=== PATIENT | female | born 1990 | race Caucasian/White ===

== ENCOUNTER 2016-06-01 13:56 | Emergency (ER) | payer OTHER ==
[~2016-06-01 13:56] MED LIST: CEPH500C PO; IBUP100SUS PO; PERCOCET PO; PRENTAB74 PO; SIME40TA PO
[2016-06-01] MEDS ORDERED: ONDANSETRON 4 MG ORAL DISINTEGRATING TAB (S0181) As Ordered ONE (14:34)
--- NOTE | 2016-06-01 14:45 | EDDOCDS ---
Physician Documentation [facility] Name: Kary Pettit Age: 25 yrs Sex: Female : 1990 Arrival Date: 06/01/2016 Time: 13:56 Bed TR7 Private MD: Disposition: 06/01/16 14:33 Discharged to Home/Self Care. Impression: Nausea and vomiting, Diarrhea, unspecified. - Condition is Stable. - Discharge Instructions: Viral Gastroenteritis. - Prescriptions for ZOFRAN ODT 4 mg - dissolve 1 tablet by ORAL route 4 times per day As needed do not chew, do not swallow whole; 10 tablet. - Medication Reconciliation form. - [facility]; When: Call to arrange an appointment; Reason: Recheck today's complaints, Continuance of care, To establish care. - Problem is new. - Symptoms are unchanged. Historical: - Allergies: codeine (Rash); - Home Meds: 1. none - PMHx: none; - PSHx: ; D & C; dental surgery; - Social history: Smoking status: Patient uses tobacco products, light tobacco smoker. No barriers to communication noted, The patient speaks fluent Croatian. - Family history: Not pertinent. - : The pt / caregiver states he / she is not on anticoagulants. Home medication list is obtained from the patient. - Exposure Risk Screening:: None identified. 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 (152.40 cm); Pain 6/10; 13:58 Body Mass Index 17.58 (40.82 kg, 152.40 cm) bnb MDM: 14:33 Ondansetron ODT Oral Disintegrating Tablet 4 mg PO once ordered. cc10 Administered Medications: 14:35 Drug: Ondansetron ODT 4 mg [ondansetron 4 mg disintegrating tablet (1 tabs)] Route: PO; pml Signatures: Anamaria Tracy RN RN rs3 Pearl Gonzalez RN RN pml Coniski, Chace, PA-C PA-C cc10 MTDD
--- NOTE | 2016-06-01 14:45 | EDDOCDS ---
Nurse's Notes [facility] Name: Kary Pettit Age: 25 yrs Sex: Female : 1990 Arrival Date: 06/01/2016 Time: 13:56 Bed TR7 Private MD: Diagnosis: Nausea and vomiting;Diarrhea, unspecified Presentation: 06/01 14:00 Presenting complaint: Patient states: vomiting, diarrhea, abdominal pain since this rs3 morning. noticed lump in her abdomen last week. Adult Sepsis Screening: The patient does not have new or worsening altered mentation. Patient's respiratory rate is less than 22. Systolic blood pressure is greater than 100. Patient has a qSOFA score of 0- Negative Sepsis Screen. Suicide/Homicide risk assessment- the patient denies having any suicidal and/or homicidal ideations and does not present with any other emotional, behavioral or mental health complaints. Status: Patient is not a community service manager or dependent. Transition of care: patient was not received from another setting of care. 14:00 Acuity: TOY Level 3 rs3 14:00 Method Of Arrival: Walkin/Carried/Asstd rs3 Triage Assessment: 14:02 General: Appears in no apparent distress. Pain: Location: abdomen. HIV screening NA for rs3 this visit Offered previously. 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 none - PMHx: none; - PSHx: ; D & C; dental surgery; - Social history: Smoking status: Patient uses tobacco products, light tobacco smoker. No barriers to communication noted, The patient speaks fluent Nepali. - Family history: Not pertinent. - : The pt / caregiver states he / she is not on anticoagulants. Home medication list is obtained from the patient. - Exposure Risk Screening:: None identified. Screenin:35 Screening information is obtained from the patient. Fall risk: No risks identified. pml Assistance ADL's: requires no assistance with activities of daily living. Abuse/DV Screen: The patient / caregiver reports he/she is: not in a situation that causes fear, pain or injury. Nutritional screening: No deficits noted. Advance Directives: Currently, there is no health care proxy. home support is adequate. Assessment: 14:35 General: Appears in no apparent distress, Behavior is appropriate for age, cooperative. pml Pain: Location: abdomen. Neurological: Level of Consciousness is awake, alert, Oriented to person, place, time. Cardiovascular: Capillary refill < 3 seconds. Respiratory: Airway is patent Respiratory effort is even, unlabored. GI: Abdomen is non- distended Bowel sounds present X 4 quads. Abd is soft X 4 quads. Derm: Skin is pink, warm & dry. Vital Signs: 13:58 BP 97 / 60 RA Sitting (auto/reg); Pulse 80; Resp 16; Temp 97.2(T); Pulse Ox 99% on R/A; bnb Weight 40.82 kg; Height 5 ft. (152.40 cm); Pain 6/10; 13:58 Body Mass Index 17.58 (40.82 kg, 152.40 cm) bnb Vitals: 13:58 Log In Time: June 01, 2016 at 13:55. bnb ED Course: 13:57 Patient visited by Macarena Farmer PCA. bnb 13:57 Patient moved to Waiting bnb 14:00 Patient moved to Pre RCE bnb 14:01 Triage Initiated rs3 14:09 Patient moved to Triage 3 ar3 14:28 Chace Campa PA-C is PHCP. cc10 14:28 Hubert Benavides MD is Attending Physician. cc10 14:28 Patient visited by Chace Campa PA-C. cc10 14:28 Patient visited by Chace Campa PA-C. cc10 14:33 [facility] is Referral Physician. cc10 14:35 The patient / caregiver is instructed regarding the plan of care and ED course. Patient pml has correct armband on for positive identification. Bed in low position. Call light in reach. 14:35 No IV's were initiated during this patient's visit. No procedures done that require pml assistance. 14:36 Patient visited by Pearl Gonzalez RN. pml 14:43 Patient moved to TR7 ar3 Administered Medications: 14:35 Drug: Ondansetron ODT 4 mg [ondansetron 4 mg disintegrating tablet (1 tabs)] Route: PO; pml Order Results: There are currently no results for this order. Outcome: 14:33 Discharge ordered by Provider. cc10 14:43 Discharge Assessment: Patient awake, alert and oriented x 3. No cognitive and/or pml functional deficits noted. Patient verbalized understanding of disposition instructions. patient administered narcotics - no. The following High Risk Discharge criteria are identified: None. Discharged to home ambulatory. Condition: good Condition: stable. Discharge instructions given to patient, Instructed on discharge instructions, follow up and referral plans. medication usage, Demonstrated understanding of instructions, medications, Pt was receptive of discharge instructions/ teaching. Prescriptions given X 1. No special radiology studies were completed. Property sent home with patient. 14:43 Patient left the ED. pml Signatures: Anamaria Tracy,RN RN rs3 Leslie Black, LINE RUNNER LINE RUNNER ar3 Pearl Gonzalez RN RN pml Chace Campa, JONNYC PASumaC cc10 Macarena Farmer, LINE RUNNER LINE RUNNER bnb MTDD
--- NOTE | 2016-06-03 15:45 | EDDOCDS ---
Physician Documentation [facility] Name: Kary Pettit Age: 25 yrs Sex: Female : 1990 Arrival Date: 06/01/2016 Time: 13:56 Bed TR7 Private MD: Disposition: 06/01/16 14:33 Discharged to Home/Self Care. Impression: Nausea and vomiting, Diarrhea, unspecified. - Condition is Stable. - Discharge Instructions: Viral Gastroenteritis. - Prescriptions for ZOFRAN ODT 4 mg - dissolve 1 tablet by ORAL route 4 times per day As needed do not chew, do not swallow whole; 10 tablet. - Medication Reconciliation form. - Follow up: [facility]; When: Call to arrange an appointment; Reason: Recheck today's complaints, Continuance of care, To establish care. - Problem is new. - Symptoms are unchanged. Historical: - Allergies: codeine (Rash); - Home Meds: 1. none - PMHx: none; - PSHx: ; D & C; dental surgery; - Social history: Smoking status: Patient uses tobacco products, light tobacco smoker. No barriers to communication noted, The patient speaks fluent Danish. - Family history: Not pertinent. - : The pt / caregiver states he / she is not on anticoagulants. Home medication list is obtained from the patient. - Exposure Risk Screening:: None identified. 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 (152.40 cm); Pain 6/10; 13:58 Body Mass Index 17.58 (40.82 kg, 152.40 cm) bnb MDM: 14:33 Ondansetron ODT Oral Disintegrating Tablet 4 mg PO once ordered. cc10 06/02 14:12 T-Sheet-- Draft Copy was scanned into [employer] and attached to record. gb Administered Medications: 06/01 14:35 Drug: Ondansetron ODT 4 mg [ondansetron 4 mg disintegrating tablet (1 tabs)] Route: PO; pml Signatures: Kenzie Ortega, Reg Reg gb Anamaria Tracy,RN RN rs3 Pearl Gonzalez,RN RN pml Chace Campa, FRANTZ LANDRY cc10 The chart was reviewed and I authenticate all verbal orders and agree with the evaluation and treatment provided.Attachments: 06/02 14:12 T-Sheet-- Draft Copy gb Chart Complete MTDD
--- NOTE | 2016-06-03 15:45 | EDDOCDS ---
Nurse's Notes [facility] Name: Kary Pettit Age: 25 yrs Sex: Female : 1990 Arrival Date: 06/01/2016 Time: 13:56 Bed TR7 Private MD: Diagnosis: Nausea and vomiting;Diarrhea, unspecified Presentation: 06/01 14:00 Presenting complaint: Patient states: vomiting, diarrhea, abdominal pain since this rs3 morning. noticed lump in her abdomen last week. Adult Sepsis Screening: The patient does not have new or worsening altered mentation. Patient's respiratory rate is less than 22. Systolic blood pressure is greater than 100. Patient has a qSOFA score of 0- Negative Sepsis Screen. Suicide/Homicide risk assessment- the patient denies having any suicidal and/or homicidal ideations and does not present with any other emotional, behavioral or mental health complaints. 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 Transition of care: patient was not received from another setting of care. 14:00 Acuity: TOY Level 3 rs3 14:00 Method Of Arrival: Walkin/Carried/Asstd rs3 Triage Assessment: 14:02 General: Appears in no apparent distress. Pain: Location: abdomen. HIV screening NA for rs3 this visit Offered previously. 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 none - PMHx: none; - PSHx: ; D & C; dental surgery; - Social history: Smoking status: Patient uses tobacco products, light tobacco smoker. No barriers to communication noted, The patient speaks fluent Hebrew. - Family history: Not pertinent. - : The pt / caregiver states he / she is not on anticoagulants. Home medication list is obtained from the patient. - Exposure Risk Screening:: None identified. Screenin:35 Screening information is obtained from the patient. Fall risk: No risks identified. pml Assistance ADL's: requires no assistance with activities of daily living. Abuse/DV Screen: The patient / caregiver reports he/she is: not in a situation that causes fear, pain or injury. Nutritional screening: No deficits noted. Advance Directives: Currently, there is no health care proxy. home support is adequate. Assessment: 14:35 General: Appears in no apparent distress, Behavior is appropriate for age, cooperative. pml Pain: Location: abdomen. Neurological: Level of Consciousness is awake, alert, Oriented to person, place, time. Cardiovascular: Capillary refill < 3 seconds. Respiratory: Airway is patent Respiratory effort is even, unlabored. GI: Abdomen is non- distended Bowel sounds present X 4 quads. Abd is soft X 4 quads. Derm: Skin is pink, warm & dry. Vital Signs: 13:58 BP 97 / 60 RA Sitting (auto/reg); Pulse 80; Resp 16; Temp 97.2(T); Pulse Ox 99% on R/A; bnb Weight 40.82 kg; Height 5 ft. (152.40 cm); Pain 6/10; 13:58 Body Mass Index 17.58 (40.82 kg, 152.40 cm) bnb Vitals: 13:58 Log In Time: June 01, 2016 at 13:55. bnb ED Course: 13:57 Patient visited by Macarena Farmer PCA. bnb 13:57 Patient moved to Waiting bnb 14:00 Patient moved to Pre RCE bnb 14:01 Triage Initiated rs3 14:09 Patient moved to Triage 3 ar3 14:28 Chace Campa PA-C is PHCP. cc10 14:28 Hubert Benavides MD is Attending Physician. cc10 14:28 Patient visited by Chace Campa PA-C. cc10 14:28 Patient visited by Chace Campa PA-C. cc10 14:33 [facility] is Referral Physician. cc10 14:35 The patient / caregiver is instructed regarding the plan of care and ED course. Patient pml has correct armband on for positive identification. Bed in low position. Call light in reach. 14:35 No IV's were initiated during this patient's visit. No procedures done that require pml assistance. 14:36 Patient visited by Pearl Gonzalez RN. pml 14:43 Patient moved to TR7 ar3 06/02 14:12 T-Sheet-- Draft Copy was scanned into [employer] and attached to record. gb Administered Medications: 06/01 14:35 Drug: Ondansetron ODT 4 mg [ondansetron 4 mg disintegrating tablet (1 tabs)] Route: PO; pml Order Results: There are currently no results for this order. Outcome: 14:33 Discharge ordered by Provider. cc10 14:43 Discharge Assessment: Patient awake, alert and oriented x 3. No cognitive and/or pml functional deficits noted. Patient verbalized understanding of disposition instructions. patient administered narcotics - no. The following High Risk Discharge criteria are identified: None. Discharged to home ambulatory. Condition: good Condition: stable. Discharge instructions given to patient, Instructed on discharge instructions, follow up and referral plans. medication usage, Demonstrated understanding of instructions, medications, Pt was receptive of discharge instructions/ teaching. Prescriptions given X 1. No special radiology studies were completed. Property sent home with patient. 14:43 Patient left the ED. pml Signatures: Kenzie Ortega, Reg Reg gb Anamaria Tracy,RN RN rs3 Leslie Black, RADIATION ENGINEER RADIATION ENGINEER ar3 Pearl Gonzalez RN RN pml Chace Campa, PAMayra PASumaC cc10 Macarena Farmer, RADIATION ENGINEER RADIATION ENGINEER bnb Chart Complete MTDD
--- NOTE | 2016-06-03 15:45 | EDDOCDS ---
Physician Documentation [facility] Name: Kary Pettit Age: 25 yrs Sex: Female : 1990 Arrival Date: 06/01/2016 Time: 13:56 Bed TR7 Private MD: Disposition: 06/01/16 14:33 Discharged to Home/Self Care. Impression: Nausea and vomiting, Diarrhea, unspecified. - Condition is Stable. - Discharge Instructions: Viral Gastroenteritis. - Prescriptions for ZOFRAN ODT 4 mg - dissolve 1 tablet by ORAL route 4 times per day As needed do not chew, do not swallow whole; 10 tablet. - Medication Reconciliation form. - Follow up: [facility]; When: Call to arrange an appointment; Reason: Recheck today's complaints, Continuance of care, To establish care. - Problem is new. - Symptoms are unchanged. Historical: - Allergies: codeine (Rash); - Home Meds: 1. none - PMHx: none; - PSHx: ; D & C; dental surgery; - Social history: Smoking status: Patient uses tobacco products, light tobacco smoker. No barriers to communication noted, The patient speaks fluent Greenlandic. - Family history: Not pertinent. - : The pt / caregiver states he / she is not on anticoagulants. Home medication list is obtained from the patient. - Exposure Risk Screening:: None identified. 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 (152.40 cm); Pain 6/10; 13:58 Body Mass Index 17.58 (40.82 kg, 152.40 cm) bnb MDM: 14:33 Ondansetron ODT Oral Disintegrating Tablet 4 mg PO once ordered. cc10 06/02 14:12 T-Sheet-- Draft Copy was scanned into [email or web address] and attached to record. gb Administered Medications: 06/01 14:35 Drug: Ondansetron ODT 4 mg [ondansetron 4 mg disintegrating tablet (1 tabs)] Route: PO; pml Signatures: Kenzie Ortega, Reg Reg gb Anamaria Tracy,RN RN rs3 Pearl Gonzalez,RN RN pml Chace Campa, FRANTZ LANDRY cc10 The chart was reviewed and I authenticate all verbal orders and agree with the evaluation and treatment provided.Attachments: 06/02 14:12 T-Sheet-- Draft Copy gb Chart Complete MTDD
== END 2016-06-01 14:43 | disposition home or self-care (01) ==
LOC: M ED 13:56
DX: B08.4 Enteroviral vesicular stomatitis with exanthem (principal); R11.2 Nausea with vomiting, unspecified; R19.7 Diarrhea, unspecified; F17.200 Nicotine dependence, unspecified, uncomplicated; Z88.5 Allergy status to narcotic agent

== ENCOUNTER → 2017-06-02 | Outpatient (CLI) | payer MEDICAID | LOC: M OUTALCOH 07:44 | DX: F12.20 Cannabis dependence, uncomplicated (principal); F10.20 Alcohol dependence, uncomplicated; F14.20 Cocaine dependence, uncomplicated ==

== ENCOUNTER 2017-06-15 10:59 | Outpatient (RCR) | payer MEDICAID | END 2017-06-17 | LOC: M OUTALCOH 10:59 | DX: F12.20 Cannabis dependence, uncomplicated (principal); F10.20 Alcohol dependence, uncomplicated; F14.20 Cocaine dependence, uncomplicated; F17.200 Nicotine dependence, unspecified, uncomplicated ==

== ENCOUNTER 2017-06-18 14:48 | Outpatient (RCR) | payer MEDICAID | END 2017-07-18 | LOC: M OUTALCOH 14:48 | DX: F12.20 Cannabis dependence, uncomplicated (principal); F10.20 Alcohol dependence, uncomplicated; F14.20 Cocaine dependence, uncomplicated; F17.200 Nicotine dependence, unspecified, uncomplicated ==

== ENCOUNTER → 2017-08-17 | Outpatient (RCR) | payer MEDICAID | LOC: M OUTALCOH 12:48 | DX: F12.20 Cannabis dependence, uncomplicated (principal); F10.20 Alcohol dependence, uncomplicated; F14.20 Cocaine dependence, uncomplicated; F17.200 Nicotine dependence, unspecified, uncomplicated ==

== ENCOUNTER → 2017-09-07 | Outpatient (CLI) | payer MEDICAID ==
[2017-09-07 09:20] LABS: BASO % 0.5 % (0.0-1.0); EOS # 0.1 10^3/uL (0.0-0.50); EOS % 1.2 % (0.0-3.0); HEMATOCRIT 39.7 % (36.0-47.0); HEMOGLOBIN 13.5 g/dl (12.0-15.5); IMMATURE GRANULOCYTE % 0.4 % (0-3.0); LYMPH # 1.2 10^3/uL (1.5-6.5); LYMPH % 21.3 % (24.0-44.0); MEAN CORPUSCULAR HEMOGLOBIN 32.5 pg (27.0-33.0); MEAN CORPUSCULAR VOLUME 95.4 fl (80.0-96.0); MONO # 0.4 10^3/uL (0.0-0.8); MONO % 6.7 % (0.0-5.0); NEUTROPHILS % 69.9 % (36.0-66.0); PLATELET COUNT, AUTOMATED 146 10^3/uL (150-450); RED BLOOD COUNT 4.16 10^6/uL (4.00-5.40); WHITE BLOOD COUNT 5.7 10^3/uL (4.0-10.0)
[2017-09-07 09:22] LABS: APPEARANCE, URINE CLOUDY (CLEAR); BACTERIA, URINE AUTO 1+ (NEGATIVE); BILIRUBIN, URINE AUTO NEGATIVE (NEGATIVE); BLOOD, URINE BLOOD NEGATIVE (NEGATIVE); COLOR, URINE YELLOW (YELLOW); GLUCOSE, URINE (UA) AUTO NEGATIVE (NEGATIVE); KETONE, URINE AUTO NEGATIVE (NEGATIVE); LEUKOCYTE ESTERASE, URINE AUTO 1+ (NEGATIVE); NITRITE, URINE AUTO NEGATIVE (NEGATIVE); PROTEIN, URINE AUTO NEGATIVE (NEGATIVE); RBC, URINE AUTO 3 /HPF (0-3); SPECIFIC GRAVITY URINE AUTO 1.011 (1.002-1.035); SQUAMOUS EPITHELIAL CELL UR AU 32 /HPF (0-6); UROBILINOGEN, URINE AUTO 0.2 mg/dL (0.0-2.0); WBC, URINE AUTO 1 /HPF (0-3)
[2017-09-07 09:41] LABS: ALBUMIN 4.7 GM/DL (3.2-5.2); ALBUMIN/GLOBULIN RATIO 1.74 (1.00-1.93); ALKALINE PHOSPHATASE 59 U/L (45-117); ALT/SGPT 26 U/L (12-78); ANION GAP 6 MEQ/L (8-16); AST/SGOT 16 U/L (7-37); BILIRUBIN,TOTAL 0.4 MG/DL (0.2-1.0); BLOOD UREA NITROGEN 13 MG/DL (7-18); CALCIUM LEVEL 9.7 MG/DL (8.5-10.1); CARBON DIOXIDE LEVEL 32 MEQ/L (21-32); CHLORIDE LEVEL 105 MEQ/L (98-107); CREATININE FOR GFR 0.65 MG/DL (0.55-1.30); GLOMERULAR FILTRATION RATE > 60.0 (>60); GLUCOSE, FASTING 56 MG/DL (70-100); POTASSIUM SERUM 4.1 MEQ/L (3.5-5.1); SODIUM LEVEL 143 MEQ/L (136-145); TOTAL PROTEIN 7.4 GM/DL (6.4-8.2)
[2017-09-07 09:56] LABS: HEPATITIS B SURFACE ANTIBODY POSITIVE (POSITIVE)
[2017-09-07 10:06] LABS: HEPATITIS B SURFACE ANTIGEN NEGATIVE (NEGATIVE)
[2017-09-07 10:35] LABS: HEPATITIS C VIRUS ABY INDEX < 0.0 INDEX (<0.8)
[2017-09-08 08:06] LABS: HEPATITIS A IgG TOTAL Negative (Negative)
== END ==
LOC: M LAB 08:35
DX: Z79.891 Long term (current) use of opiate analgesic (principal); F10.21 Alcohol dependence, in remission
CPT/HCPCS: 80053

== ENCOUNTER → 2017-11-13 | Outpatient (CLI) | payer OTHER ==
[2017-11-13 11:15] LABS: MAGNESIUM LEVEL 2.1 MG/DL (1.8-2.4)
[2017-11-13 11:28] LABS: FOLATE > 24.0 NG/ML; TOTAL 25(OH) VITAMIN D 26.9 NG/ML (30.0-100.0); VITAMIN B12 LEVEL 554 PG/ML
== END ==
LOC: M LAB 10:24
DX: F10.21 Alcohol dependence, in remission (principal)
CPT/HCPCS: 82746

== ENCOUNTER 2018-04-08 21:11 | Emergency (ER) | payer OTHER ==
[2018-04-08 23:50] LABS: INFLUENZA A AMPLIFICATION NEGATIVE (NEGATIVE); INFLUENZA B AMPLIFICATION NEGATIVE (NEGATIVE)
== END 2018-04-09 00:20 | disposition home or self-care (01) ==
LOC: M ED 04-09 00:20
DX: B34.9 Viral infection, unspecified (principal); Z87.891 Personal history of nicotine dependence; F32.9 Major depressive disorder, single episode, unspecified
CPT/HCPCS: 71046

== ENCOUNTER 2018-06-16 09:37 | Outpatient (RCR) | payer OTHER ==
[~2018-06-16 09:37] MED LIST changes: +BUSP15TA47; +FLUO20CA19; +NICO21DI31; +PREN27TA3; +VITA400C5
== END 2018-06-17 ==
LOC: M PT 09:37
PROVIDERS: ATTEND Physician Assistant Medical
DX: Z51.89 Encounter for other specified aftercare (principal); M54.5 Low back pain

== ENCOUNTER → 2018-07-01 | Outpatient (CLI) | payer OTHER ==
[2018-07-01 10:43] LABS: BASO % 0.4 % (0.0-1.0); EOS # 0.1 10^3/uL (0.0-0.50); EOS % 1.2 % (0.0-3.0); HEMATOCRIT 36.3 % (36.0-47.0); HEMOGLOBIN 12.5 g/dl (12.0-15.5); LYMPH # 1.3 10^3/uL (1.5-6.5); LYMPH % 24.6 % (24.0-44.0); MEAN CORPUSCULAR HGB CONC 34.4 g/dl (32.0-36.5); MEAN CORPUSCULAR VOLUME 90.1 fl (80.0-96.0); MONO # 0.4 10^3/uL (0.0-0.8); MONO % 8.7 % (0.0-5.0); NEUTROPHILS # 3.3 10^3/uL (1.8-7.7); NEUTROPHILS % 64.7 % (36.0-66.0); PLATELET COUNT, AUTOMATED 145 10^3/uL (150-450); RED BLOOD COUNT 4.03 10^6/uL (4.00-5.40); WHITE BLOOD COUNT 5.1 10^3/uL (4.0-10.0)
[2018-07-01 11:16] LABS: ALBUMIN 3.9 GM/DL (3.2-5.2); ALT/SGPT 24 U/L (12-78); BILIRUBIN,TOTAL 0.3 MG/DL (0.2-1.0); BLOOD UREA NITROGEN 12 MG/DL (7-18); CALCIUM LEVEL 9.1 MG/DL (8.5-10.1); CARBON DIOXIDE LEVEL 29 MEQ/L (21-32); CHLORIDE LEVEL 105 MEQ/L (98-107); CHOLESTEROL LEVEL 164 MG/DL (<200); CREATININE FOR GFR 0.66 MG/DL (0.55-1.30); GLOMERULAR FILTRATION RATE > 60.0 (>60); GLUCOSE, FASTING 83 MG/DL (70-100); HDL CHOLESTEROL 40 MG/DL (>40); LDL CHOLESTEROL 101 MG/DL (<100); NON-HDL-C 124 MG/DL; POTASSIUM SERUM 4.2 MEQ/L (3.5-5.1); SODIUM LEVEL 139 MEQ/L (136-145); TOTAL PROTEIN 6.8 GM/DL (6.4-8.2); TRIGLYCERIDES LEVEL 117 MG/DL (<150)
== END ==
LOC: M LAB 09:22
PROVIDERS: ATTEND Physician Assistant Medical
DX: R53.83 Other fatigue (principal); I10 Essential (primary) hypertension; E55.9 Vitamin D deficiency, unspecified

== ENCOUNTER 2018-07-14 12:46 | Outpatient (RCR) | payer OTHER | END 2018-07-18 | LOC: M PT 12:46 | PROVIDERS: ATTEND Physician Assistant Medical | DX: Z51.89 Encounter for other specified aftercare (principal); M54.5 Low back pain ==

== ENCOUNTER 2018-08-12 13:00 | Outpatient (RCR) | payer OTHER ==
[~2018-08-12 13:00] MED LIST changes: -BUSP15TA47; +BUSP15TA47 PO; +IBUP100S44 PO; -IBUP100SUS PO; +OXYC1TAB23 PO; -PERCOCET PO
[2018-08-13] MEDS ORDERED: PROZ20CA11 PO (21:29)
[2018-08-13] MEDS ORDERED: VITA200044 PO (23:39)
[2018-08-13] MEDS ORDERED: HYDR-3363 PO (23:39)
[2018-08-13] MEDS ORDERED: FLUO10CA8 PO (23:39)
[2018-08-13] MEDS ORDERED: NICO4GUM42 MT (23:39)
[2018-08-13] MEDS ORDERED: VITA-157 PO (23:39)
[2018-08-13] MEDS ORDERED: PREN27TA3 PO (23:39)
[2018-08-13] MEDS ORDERED: IBUP1TAB6 PO (23:39)
[2018-08-13] MEDS ORDERED: FLON1SPR NARES (23:39)
== END 2018-08-17 ==
LOC: M PT 13:00
PROVIDERS: ATTEND Physician Assistant Medical
DX: M54.5 Low back pain (principal)

== ENCOUNTER 2018-08-13 21:07 | Inpatient (IN) | payer OTHER ==
[~2018-08-13] VITALS: Ht 154.9 cm; Wt 64.3 kg
[2018-08-13] MEDS ORDERED: PROZ20CA11 PO (21:29)
[2018-08-13 21:50] LABS: HEMATOCRIT 36.1 % (36.0-47.0); HEMOGLOBIN 12.5 g/dl (12.0-15.5); MEAN CORPUSCULAR HEMOGLOBIN 31.8 pg (27.0-33.0); MEAN CORPUSCULAR HGB CONC 34.6 g/dl (32.0-36.5); MEAN CORPUSCULAR VOLUME 91.9 fl (80.0-96.0); PLATELET COUNT, AUTOMATED 150 10^3/uL (150-450); RED BLOOD COUNT 3.93 10^6/uL (4.00-5.40); WHITE BLOOD COUNT 5.8 10^3/uL (4.0-10.0)
[2018-08-13 22:31] LABS: ACETAMINOPHEN LEVEL < 2.0 UG/ML (10.0-30.0); ALBUMIN 3.8 GM/DL (3.2-5.2); ALT/SGPT 34 U/L (12-78); BILIRUBIN,DIRECT < 0.1 MG/DL (0.0-0.2); BILIRUBIN,TOTAL 0.1 MG/DL (0.2-1.0); BLOOD UREA NITROGEN 14 MG/DL (7-18); CALCIUM LEVEL 8.6 MG/DL (8.5-10.1); CARBON DIOXIDE LEVEL 28 MEQ/L (21-32); CHLORIDE LEVEL 108 MEQ/L (98-107); CREATININE FOR GFR 0.68 MG/DL (0.55-1.30); ETHYL ALCOHOL (ETHANOL) < 0.003 % (0.000-0.010); GLOMERULAR FILTRATION RATE > 60.0 (>60); GLUCOSE, FASTING 93 MG/DL (70-100); POTASSIUM SERUM 3.7 MEQ/L (3.5-5.1); SALICYLATE LEVEL < 1.7 MG/DL (5.0-30.0); SODIUM LEVEL 142 MEQ/L (136-145); TOTAL PROTEIN 7.1 GM/DL (6.4-8.2)
[2018-08-13 23:03] LABS: AMPHETAMINES LEVEL URINE NEGATIVE (NEGATIVE); BARBITURATES URINE NEGATIVE (NEGATIVE); BENZODIAZEPINES URINE NEGATIVE (NEGATIVE); CANNABINOIDS URINE NEGATIVE (NEGATIVE); COCAINE METABOLITE URINE NEGATIVE (NEGATIVE); METHADONE URINE NEGATIVE (NEGATIVE); OPIATES URINE NEGATIVE (NEGATIVE); PHENCYCLIDINE URINE NEGATIVE (NEGATIVE)
[2018-08-13] MEDS ORDERED: FLON1SPR NARES (23:39)
[2018-08-13] MEDS ORDERED: VITA200044 PO (23:39)
[2018-08-13] MEDS ORDERED: HYDR-3363 PO (23:39)
[2018-08-13] MEDS ORDERED: NICO4GUM42 MT (23:39)
[2018-08-13] MEDS ORDERED: VITA-157 PO (23:39)
[2018-08-13] MEDS ORDERED: FLUO10CA8 PO (23:39)
[2018-08-13] MEDS ORDERED: IBUP1TAB6 PO (23:39)
[2018-08-13] MEDS ORDERED: PREN27TA3 PO (23:39)
[2018-08-14] MEDS ORDERED: MOM 30ML SUSPENSION UDC PO PRN
[2018-08-14] MEDS ORDERED: MAALOX 30 ML SUSP *UDC PO PRN
[2018-08-14 01:35] VITALS: BP 116/57
[2018-08-14 06:29] VITALS: BP 102/51
[2018-08-14] MEDS: FLUoxetine 20 MG CAP PO SCH (17:04)
[2018-08-14 18:20] VITALS: BP 127/70
[2018-08-14] MEDS: traZODone 50 MG TAB PO PRN (20:54)
[2018-08-15 06:56] VITALS: BP 95/55
[2018-08-15] MEDS: FLUoxetine 20 MG CAP PO SCH (09:06)
[2018-08-15] MEDS ORDERED: FLUoxetine 20 MG CAP PO ONE (13:30)
[2018-08-15 18:35] VITALS: BP 101/54
[2018-08-15] MEDS: traZODone 50 MG TAB PO PRN (22:29)
[2018-08-15] MEDS: diphenhydrAMINE CREAM 30GM TOP PRN (22:30)
[2018-08-16 06:49] VITALS: BP 93/52
[2018-08-16] MEDS ORDERED: FLUoxetine 20 MG CAP PO SCH (09:00)
[2018-08-16] MEDS: diphenhydrAMINE CREAM 30GM TOP PRN (11:24)
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
[2018-08-16 18:00] VITALS: BP 115/70
--- NOTE | 2018-08-16 21:39 | HPE ---
DATE OF ADMISSION: 08/13/2018 HISTORY OF PRESENT ILLNESS: Please refer to the psychiatric history and evaluation for further details on this admission. This examination and history is intended for medical issues which may need treatment, followup or consultation on this 27-year-old female. ALLERGIES: CODEINE and VARENICLINE. PRIMARY CARE PROVIDER: JOSUE Dugan at [facility] SOCIAL HISTORY: She is single. She is currently a resident at the [facility] for drug rehabilitation. Alcohol: None in 14 months. Smoking cigarettes: None in one year. Recreational drug use: Alcohol and marijuana, none for 14 months. PAST MEDICAL HISTORY: Negative. PAST SURGICAL HISTORY: Dilation and curettage, three (C) sections, and dental surgery. HOME MEDICATIONS: - Sensipar 15 mg by mouth three times a day - fluoxetine 10 mg by mouth daily and 20 mg by mouth daily - fluticasone nasal spray two sprays as needed for allergies - hydroxyzine 25 mg by mouth at bedtime - vitamin one daily - vitamin D3 2000 units by mouth daily - ibuprofen 600 mg by mouth three times a day as needed for pain - nicotine gum 4 mg six times per day as needed for nicotine craving - vitamin E 400 units daily FAMILY HISTORY: Noncontributory. LABORATORY STUDIES: WBC 5.8, hemoglobin 12.5, hematocrit 36.1, platelets 150. Sodium 142, potassium 3.7, chloride 108, CO2 28, anion gap 6, BUN 14, creatinine 0.6. Toxicology was negative. REVIEW OF SYSTEMS: 11-systems review was done. She complained of just noting after her shower that she had a slight red non-vesicular rash on her upper inner thigh, possibly secondary to rubbing on the scrubs, irritating. No open areas. Otherwise, no complaints and was remarkable. PHYSICAL EXAMINATION: A 27-year-old cooperative female in no acute distress. Height 61 inches, body mass index (BMI) 26.4, blood pressure 127/70, pulse 72, respiratory rate 14, temperature 98.3. The patient is alert and oriented times three. Pupils are equal and reactive to light. Extraocular muscles intact. Cornea and sclerae clear. Conjunctiva is normal. No facial asymmetry. Pharynx, tongue and gums pink and moist. Tongue is midline. Neck is supple without lymphadenopathy. No thyromegaly. No goiter. Carotids 2+ without bruits. Chest is clear to auscultation without wheeze or retraction. Heart is regular. Abdomen is benign. Bowel sounds positive. Genitourinary ()/rectal not done. Extremities show no cyanosis, clubbing or edema. Peripheral pulses equal and palpable bilaterally. Skin is warm and dry. Left upper inner thigh, slightly reddened non-vesicular rash. No open areas noted. IMPRESSION AND PLAN: 1. Psychiatric plan per psychiatry. 2. Contact dermatitis, left upper thigh. Benadryl cream to the left inner thigh rash three times a day as needed for itching. 3. No other acute medical issues.
[2018-08-16] MEDS: traZODone 50 MG TAB PO PRN (22:28)
[2018-08-16] MEDS: IBUPROFEN 600 MG TAB PO PRN (22:51)
[2018-08-16] MEDS: NICOTINE POLACRILEX 2 MG GUM PO PRN (22:51)
[2018-08-17 07:07] VITALS: BP 105/51
[2018-08-17] MEDS: FLUoxetine 20 MG CAP PO SCH (09:02)
[2018-08-17] MEDS: VENLAFAXINE **XR** 37.5 MG CAPSULE PO SCH (09:02)
[2018-08-17] MEDS: IBUPROFEN 600 MG TAB PO PRN ×2 (09:02→21:00)
[2018-08-17] MEDS: NICOTINE POLACRILEX 2 MG GUM PO PRN ×2 (09:02→21:01)
--- NOTE | 2018-08-17 10:23 | MHIPN ---
DATE: 08/15/2018 The patient states that she is still feeling depressed. She says she is still having suicidal ideations on and off, but she is david for safety at this point and she is still feeling pretty depressed. MENTAL STATUS EXAMINATION: She is alert and oriented times 3. She is pleasant and cooperative. Psychomotor activity is decreased. There is no formal thought disorder noted. Mood is depressed. Affect is full range and appropriate. She is not psychotic, suicidal or homicidal. Concentration is fair. Memory intact. Insight and judgment are poor. DIAGNOSES: 1. Generalized anxiety disorder. 2. Cannabis use disorder, moderate. 3. Alcohol use disorder, moderate. 4. Smoking use disorder, mild. TREATMENT AND PLAN: At this point, will continue the Prozac and actually I meant to increase the Prozac to 40 mg and I will do so today, but it will take affect tomorrow morning. Will continue to monitor for continued elevation and stabilization of her mood and continue resolutions with her ideations. CRISPIN
--- NOTE | 2018-08-17 10:43 | MHIPNPDOC ---
[facility] Progress Note Progress Note DATE OF SERVICE: 08/17/18 HISTORY: Pt is a 27y/o CF with a history of depression and substance abuse living at [facility] 11.5 months who was brought in by police secondary SI with plan to cut holes in her arteries or strangle herself due to stressors involving her son stating it the ED "my son would be better off w/o me." Stated in ED [facility] hasn't been helping her with her depression and issues involving her son. VITAL SIGNS: See below. NEW TEST RESULTS: See below. CURRENT MEDICATIONS: See below. MENTAL STATUS EXAMINATION: Patient is a 27-year old female, who is clean, dressed in hospital scrubs, no dentition Speech: Is reg rate/rhythm/volume Language skills are good Thought processes including: linear, logical, depressed Thought content: Denies SI/HI, AVH. Worrisome thoughts and neg cognitive distortions. Abstract reasoning, and computation: intact. Description of associations: appropriate Description of abnormal or psychotic thoughts: denies SI/HI, AVH Judgment: fair Insight: fair Orientation: x3 Recent and remote memory: intact Attention span and concentration: good Language: appropriate Fund of knowledge: average Mood: less depressed Affect: less depressed, constricted DIAGNOSES: Depression Unspecified R/O adjustment d/o with depression and anxiety Hx of substance abuse. ASSESSMENT:Pt seen and states she feels "better" today. States she's tolerating cross titrate from prozac to effexor xr that she started today and will await he r reponse to meds as too early to tell. Asking to increase trazodone to aid sleep at night. States she spoke with her PO yesterday and may not have to return to [facility] but be able to stay with her sister who is supportive instead (stayed w/sister 2wks prior going to [facility] and maintained sobriety). Is attending groups and finding helpful. Denies SI/HI, hallucinations, delusions. Feels safe here. MANAGEMENT PLAN: continue plan. cross titrate prozac to effexor xr. increase trazodone for sleep. effexor xr 37.5mg daily PROzac 20 mg QAM Trazodone 100 mg QHSP PRN PO INSOMNIA TIME SPENT: 30 minutes. Vital Signs Vital Signs Date Time Temp Pulse Resp B/P (MAP) Pulse Ox O2 Delivery O2 Flow Rate FiO2 08/17/18 07:07 97.7 52 16 105/51 (69) 08/13/18 21:23 98 Room Air Current Medications Current Medications Acetaminophen (Tylenol Tab) 650 mg Q6HP PRN PO HEADACHE or DISCOMFORT; Start 08/14/18 at 00:00 Al Hydrox/Mg Hydrox/Simethicone (Mylanta) 30 ml Q4HP PRN PO HEARTBURN/INDIGESTION; Start 08/14/18 at 00:00 Diphenhydramine HCl (Benadryl Cream) to rash upper left inner thigh TIDP PRN TOP ITCHING Last administered on 08/16/18 11:24; Start 08/14/18 at 23:00 Fluoxetine HCl (PROzac) 20 mg DAILY PO Last administered on 08/17/18at 09:02; Start 08/17/18 at 09:00 Fluoxetine HCl (PROzac) 20 mg QAM PO Last administered on 08/15/18at 09:06; Start 08/14/18 at 09:00; Stop 08/15/18 at 12:55; Status DC Fluoxetine HCl (PROzac) 40 mg QAM PO Last administered on 08/16/18 09:40; Start 08/16/18 at 09:00; Stop 08/16/18 at 11:39; Status DC Home Med (Med Rec Complete!) ASDIRECTED XX ; Start 08/13/18 at 23:45; Stop 08/13/18 at 23:45; Status DC Ibuprofen (Advil) 600 mg Q6HP PRN PO MODERATE PAIN (PS 5-7) Last administered on 08/17/18at 09:02; Start 08/16/18 at 22:30 Magnesium Hydroxide (Milk Of Magnesia) 30 ml DAILYPRN PRN PO CONSTIPATION; Start 08/14/18 at 00:00 Nicotine (Nicorette) 4 mg Q2HP PRN PO NICOTINE WITHDRAWAL Last administered on 08/17/18at 09:02; Start 08/16/18 at 22:30 Trazodone HCl (Desyrel) 50 mg QHSP PRN PO INSOMNIA Last administered on 08/16/18at 22:28; Start 08/14/18 at 00:00 Venlafaxine HCl (Effexor Xr) 37.5 mg DAILY PO Last administered on 08/17/18at 09:02; Start 08/17/18 at 09:00 Allergies Coded Allergies: codeine (Verified Allergy, Unknown, 08/13/18) HIVES varenicline (Unverified Allergy, Unknown, THROAT SWELLING, 08/13/18) A-FIB/CHADSVASC A-FIB History Current/History of A-Fib/PAF?: No Current Oral Anticoagulant The: No Treatment Treatment ordered: NONE Reason Anticoagulant not given: Not indicated/[id number] ALEJANDRO BATRES DO Aug 17, 2018 10:42
[2018-08-17 18:00] VITALS: BP 94/56
[2018-08-17] MEDS: traZODone 100 MG TAB PO PRN (20:59)
[2018-08-17] MEDS: ACETAMINOPHEN TAB 650MG DOSE (2X325MG) PO PRN (22:05)
[2018-08-18 06:36] VITALS: BP 108/50
[2018-08-18] MEDS: FLUoxetine 20 MG CAP PO SCH (08:24)
[2018-08-18] MEDS: IBUPROFEN 600 MG TAB PO PRN ×2 (08:24→22:33)
[2018-08-18] MEDS: VENLAFAXINE **XR** 37.5 MG CAPSULE PO SCH (08:24)
[2018-08-18] MEDS: NICOTINE POLACRILEX 2 MG GUM PO PRN ×3 (08:24→22:31)
[2018-08-18] MEDS: ACETAMINOPHEN TAB 650MG DOSE (2X325MG) PO PRN (10:18)
--- NOTE | 2018-08-18 11:18 | MHIPNPDOC ---
[facility] Progress Note Progress Note DATE OF SERVICE: 08/18/18 HISTORY: Pt is a 27y/o CF with a history of depression and substance abuse living at [facility] 11.5 months who was brought in by police secondary SI with plan to cut holes in her arteries or strangle herself due to stressors involving her son stating it the ED "my son would be better off w/o me." Stated in ED [facility] hasn't been helping her with her depression and issues involving her son. VITAL SIGNS: See below. NEW TEST RESULTS: See below. CURRENT MEDICATIONS: See below. MENTAL STATUS EXAMINATION: Patient is a 27-year old female, who is clean, dressed in hospital scrubs, no dentition Speech: Is reg rate/rhythm/volume Language skills are good Thought processes including: linear, logical, depressed Thought content: Denies SI/HI, AVH. Worrisome thoughts and neg cognitive distortions. Abstract reasoning, and computation: intact. Description of associations: appropriate Description of abnormal or psychotic thoughts: denies SI/HI, AVH Judgment: fair Insight: fair Orientation: x3 Recent and remote memory: intact Attention span and concentration: good Language: appropriate Fund of knowledge: average Mood: "alright" Affect: less depressed and constricted DIAGNOSES: Depression Unspecified R/O adjustment d/o with depression and anxiety Hx of substance abuse. ASSESSMENT:Pt seen and states she feels "alright" today. States she's tolerating cross titrate from prozac to effexor xr that she started today and will await her response to meds as too early to tell. Feels ready to d/c prozac and increase effexor xr. found increased trazodone beneficial for sleep at night. Hopeful PO will allow her to stay with her sister who is supportive instead of returning [facility] (stayed w/sister 2wks prior going to [facility] and maintained sobriety). States her parents visited her and that her whole family is supportive. Is attending groups and finding helpful. Denies SI/HI, hallucinations, delusions. Feels safe here. MANAGEMENT PLAN: continue plan. d/c prozac and increase effexor xr to complete titration (already received meds today so will start tomorrow) effexor xr 75mg daily Trazodone 100 mg QHSP PRN PO INSOMNIA TIME SPENT: 30 minutes. Vital Signs Vital Signs Date Time Temp Pulse Resp B/P (MAP) Pulse Ox O2 Delivery O2 Flow Rate FiO2 08/18/18 06:36 98.5 50 14 108/50 (69) 08/13/18 21:23 98 Room Air Current Medications Current Medications Acetaminophen (Tylenol Tab) 650 mg Q6HP PRN PO HEADACHE or DISCOMFORT Last administered on 08/18/18 10:18; Start 08/14/18 at 00:00 Al Hydrox/Mg Hydrox/Simethicone (Mylanta) 30 ml Q4HP PRN PO HEARTBURN/INDIGESTION; Start 08/14/18 at 00:00 Diphenhydramine HCl (Benadryl Cream) to rash upper left inner thigh TIDP PRN TOP ITCHING Last administered on 08/16/18 11:24; Start 08/14/18 at 23:00 Fluoxetine HCl (PROzac) 20 mg DAILY PO Last administered on 08/18/18 08:24; Start 08/17/18 at 09:00 Fluoxetine HCl (PROzac) 20 mg QAM PO Last administered on 08/15/18 09:06; Start 08/14/18 at 09:00; Stop 08/15/18 at 12:55; Status DC Fluoxetine HCl (PROzac) 40 mg QAM PO Last administered on 08/16/18 09:40; Start 08/16/18 at 09:00; Stop 08/16/18 at 11:39; Status DC Home Med (Med Rec Complete!) ASDIRECTED XX ; Start 08/13/18 at 23:45; Stop 08/13/18 at 23:45; Status DC Ibuprofen (Advil) 600 mg Q6HP PRN PO MODERATE PAIN (PS 5-7) Last administered on 08/18/18 08:24; Start 08/16/18 at 22:30 Magnesium Hydroxide (Milk Of Magnesia) 30 ml DAILYPRN PRN PO CONSTIPATION; Start 08/14/18 at 00:00 Nicotine (Nicorette) 4 mg Q2HP PRN PO NICOTINE WITHDRAWAL Last administered on 08/18/18 08:24; Start 08/16/18 at 22:30 Trazodone HCl (Desyrel) 50 mg QHSP PRN PO INSOMNIA Last administered on 4/29/19at 22:28; Start 08/14/18 at 00:00; Stop 08/17/18 at 10:44; Status DC Trazodone HCl (Desyrel) 100 mg QHSP PRN PO INSOMNIA Last administered on 08/17/18at 20:59; Start 08/17/18 at 10:45 Venlafaxine HCl (Effexor Xr) 37.5 mg DAILY PO Last administered on 08/18/18at 08:24; Start 08/17/18 at 09:00 Allergies Coded Allergies: codeine (Verified Allergy, Unknown, 08/13/18) HIVES varenicline (Unverified Allergy, Unknown, THROAT SWELLING, 08/13/18) ALEJANDRO BATRES DO August 18, 2018 11:18 am
[2018-08-18 18:00] VITALS: BP 105/58
[2018-08-18] MEDS: traZODone 100 MG TAB PO PRN (22:31)
[2018-08-19 07:18] VITALS: BP 101/46
[2018-08-19] MEDS: NICOTINE POLACRILEX 2 MG GUM PO PRN ×2 (08:20→13:51)
[2018-08-19] MEDS ORDERED: VENLAFAXINE **XR** 75MG CAPSULE PO SCH (09:00)
[2018-08-19] MEDS ORDERED: VENL75CA47 PO (09:30)
[2018-08-19] MEDS ORDERED: TRAZ10TA PO (09:30)
--- NOTE | 2018-08-19 09:31 | MHDSPDOC ---
[facility] Discharge Summary Discharge Summary DATE OF ADMISSION: Aug 13, 2018 at 11:51 pm DATE OF DISCHARGE: August 19, 2018 DISCHARGE DIAGNOSES: Depression Unspecified R/O adjustment d/o with depression and anxiety Hx of substance abuse. REASON FOR ADMISSION: Pt is a 27y/o CF with a history of depression and substance abuse living at [facility] 11.5 months who was brought in by police secondary SI with plan to cut holes in her arteries or strangle herself due to stressors involving her son stating it the ED "my son would be better off w/o me." Stated in ED [facility] hasn't been helping her with her depression and issues involving her son. CONSULTANTS INVOLVED: none TREATMENT AND PROGRESS ON THE UNIT : Pt was admitted to [facility], seen for psychiatric assessment and she was cross tapered from prozac to effexor xr with final doses on no prozac and effexor xr 75mg daily as pt did not find prozac help for her mood. She tolerated the Effexor xr well and found it beneficial. She was provided trazodone 50mg qhs prn insomnia. Pt found her medications beneficial and tolerated them well. She attended groups daily during her stay. Her symptoms improved with treatment. On day of discharge she denied depression, anxiety, insomnia, SI/HI, hallucinations, delusions. She was discharged home to her father's with the ok from her PO with follow-up at [facility]. She felt safe for discharge. DISCHARGE ASSESSMENT: Pt seen and states she feels "good" today. States she's tolerating her effexor xr well and feels it's beneficial after increased yesterday and no longer taking prozac. States trazodone beneficial for sleep at night. PO will allow her to stay with her sister who is supportive instead of returning [facility] (stayed w/sister 2wks prior going to [facility] and maintained sobriety). States her parents visited her and that her whole family is support prabhu. Is attending groups and finding helpful. Denies depression, anxiety, insomnia, SI/HI, hallucinations, delusions. Feels safe to discharge home with her father's. MENTAL STATUS EXAMINATION ON DISCHARGE: Patient is a 27-year old female, who is clean, dressed in hospital scrubs, no dentition Speech: Is reg rate/rhythm/volume Language skills are good Thought processes including: linear, logical, depressed Thought content: Denies SI/HI, AVH. Abstract reasoning, and computation: intact. Description of associations: appropriate Description of abnormal or psychotic thoughts: denies SI/HI, AVH Judgment: good Insight: good Orientation: x3 Recent and remote memory: intact Attention span and concentration: good Language: appropriate Fund of knowledge: average Mood: "good" Affect: euthymic, full MEDICATIONS ON DISCHARGE: effexor xr 75mg daily Trazodone 100 mg QHSP PRN PO INSOMNIA PLAN/FOLLOWUP ARRANGEMENTS: D/c home to father's house with follow-up at [facility]. The amount of time spent in the coordination of care for this patient was approximately 30 minutes. Vital Signs/I&Os Vital Signs Date Time Temp Pulse Resp B/P (MAP) Pulse Ox O2 Delivery O2 Flow Rate FiO2 08/19/18 07:18 98.8 51 14 101/46 (64) 08/13/18 21:23 98 Room Air Medications Scheduled Cholecalciferol (Vitamin D3) (Vitamin D3) 2,000 Unit Capsule, 2,000 UNIT PO DAILY, (Reported) Fluoxetine HCl (Prozac) 20 Mg Capsule, 20 MG PO DAILY, (Reported) 30 MG TOTAL DOSE Fluoxetine Hcl (Fluoxetine HCl) 10 Mg Capsule, 10 MG PO DAILY, (Reported) 30 MG TOTAL DOSE Hydroxyzine HCl (Hydroxyzine HCl) 25 Mg Tablet, 25 MG PO QHS, (Reported) Pnv,Calcium 72/Iron/Folic Acid ( Vitamin Plus Low Iron) 1 Each Tablet, 1 TAB PO DAILY, (Reported) Vitamin E (Dl,Tocopheryl Acet) (Vitamin E) 400 Unit Capsule, 400 UNIT PO DAILY, (Reported) Scheduled PRN Buspirone HCl (Buspirone HCl) 15 Mg Tab, 15 MG PO TID PRN for ANXIETY, (Reported) Fluticasone Propionate (Flonase Allergy Relief) 9.9 Ml [email or web address], 2 SPR NARES DAILY PRN for ALLERGIES, (Reported) Ibuprofen (Ibuprofen) 600 Mg Tablet, 600 MG PO TID PRN for PAIN, (Reported) Nicotine Polacrilex (Nicotine Gum) 4 Mg Gum, 4 MG MT 6XD PRN for CRAVINGS, (Reported) Allergies Coded Allergies: codeine (Verified Allergy, Unknown, 08/13/18) HIVES varenicline (Unverified Allergy, Unknown, THROAT SWELLING, 08/13/18) ALEJANDRO BATRES DO August 19, 2018 9:31 am
== END 2018-08-19 14:30 | disposition home or self-care (01) | DRG 755 ==
LOC: M ED 21:07 → M ED INP 23:51 → M PSY 08-14 02:00
PROVIDERS: ADMIT Psychiatry & Neurology Psychiatry; ATTEND Psychiatry & Neurology Psychiatry
DX: F43.23 Adjustment disorder with mixed anxiety and depressed mood (principal); R45.851 Suicidal ideations; Z79.899 Other long term (current) drug therapy; Z88.5 Allergy status to narcotic agent

== ENCOUNTER 2018-09-16 14:30 | Outpatient (RCR) | payer OTHER ==
[~2018-09-16 14:30] MED LIST changes: +FLON1SPR NARES; +FLUO10CA8 PO; +HYDR-3363 PO; +IBUP1TAB6 PO; +NICO4GUM42 MT; +PREN27TA3 PO; +PROZ20CA11 PO; +TRAZ10TA PO; +VENL75CA47 PO; +VITA-157 PO; +VITA200044 PO
== END 2018-09-17 ==
LOC: M PT 14:30
PROVIDERS: ATTEND Physician Assistant Medical
DX: M54.5 Low back pain (principal)

== ENCOUNTER → 2019-03-24 | Outpatient (CLI) | payer OTHER ==
[2019-03-24 13:36] LABS: BASO % 0.5 % (0.0-1.0); EOS # 0.1 10^3/uL (0.0-0.5); EOS % 1.8 % (0.0-3.0); HEMATOCRIT 41.2 % (36.0-47.0); HEMOGLOBIN 13.9 g/dl (12.0-15.5); LYMPH # 1.2 10^3/uL (1.5-5.0); LYMPH % 29.8 % (24.0-44.0); MEAN CORPUSCULAR HEMOGLOBIN 31.4 pg (27.0-33.0); MEAN CORPUSCULAR HGB CONC 33.7 g/dl (32.0-36.5); MEAN CORPUSCULAR VOLUME 93.2 fl (80.0-96.0); MONO # 0.4 10^3/uL (0.0-0.8); MONO % 10.3 % (0.0-5.0); NEUTROPHILS # 2.3 10^3/uL (1.5-8.5); NEUTROPHILS % 57.3 % (36.0-66.0); PLATELET COUNT, AUTOMATED 154 10^3/uL (150-450); RED BLOOD COUNT 4.42 10^6/uL (4.00-5.40)
[2019-03-24 14:03] LABS: ALBUMIN 3.7 GM/DL (3.2-5.2); ALT/SGPT 29 U/L (12-78); BILIRUBIN,TOTAL 0.6 MG/DL (0.2-1.0); BLOOD UREA NITROGEN 7 MG/DL (7-18); CALCIUM LEVEL 9.4 MG/DL (8.5-10.1); CARBON DIOXIDE LEVEL 29 MEQ/L (21-32); CHLORIDE LEVEL 105 MEQ/L (98-107); CREATININE FOR GFR 0.62 MG/DL (0.55-1.30); GLOMERULAR FILTRATION RATE > 60.0 (>60); GLUCOSE, FASTING 77 MG/DL (70-100); SODIUM LEVEL 139 MEQ/L (136-145); THYROID STIMULATING HORMONE 0.879 uIU/ML (0.358-3.740); TOTAL PROTEIN 6.9 GM/DL (6.4-8.2)
[2019-03-25 10:58] LABS: HEPATITIS C VIRUS ABY INDEX 0.1 INDEX (<0.8)
== END ==
LOC: M LAB 12:24
PROVIDERS: ATTEND Nurse Practitioner Family
DX: F11.20 Opioid dependence, uncomplicated (principal)

== ENCOUNTER 2019-07-05 18:07 | Emergency (ER) | payer OTHER ==
[~2019-07-05] VITALS: Ht 149.9 cm; Wt 54.0 kg
[~2019-07-05 18:07] MED LIST changes: +FLUO10CA15 PO; -FLUO10CA8 PO; -FLUO20CA19; +FLUO20CA22; -TRAZ10TA PO; +TRAZ1TAB12 PO; +VITA1CAP15; -VITA400C5
[2019-07-05] MEDS ORDERED: GABA600T4 (18:15)
[2019-07-05 19:22] LABS: INFLUENZA A AMPLIFICATION NEGATIVE (NEGATIVE); INFLUENZA B AMPLIFICATION NEGATIVE (NEGATIVE)
[2019-07-05] MEDS ORDERED: CLAR5TAB7 PO (19:26)
[2019-07-05 19:33] VITALS: BP 118/65
== END 2019-07-05 19:34 | disposition home or self-care (01) ==
LOC: M ED 18:07
DX: J40 Bronchitis, not specified as acute or chronic (principal); R09.82 Postnasal drip; F17.200 Nicotine dependence, unspecified, uncomplicated; F41.9 Anxiety disorder, unspecified; F32.9 Major depressive disorder, single episode, unspecified; Z88.1 Allergy status to other antibiotic agents; Z88.8 Allergy status to other drugs, medicaments and biological substances; Z79.899 Other long term (current) drug therapy

== ENCOUNTER → 2020-03-29 | Outpatient (CLI) | payer OTHER ==
[~2020-03-29] MED LIST changes: +CLAR5TAB7 PO; -FLUO10CA15 PO; +FLUO10CA16 PO; +GABA600T4; +NICO1DIS12; -NICO21DI31; -VITA1CAP15; +VITA400C83
== END ==
LOC: M LABSMTC 13:57
PROVIDERS: ATTEND Family Medicine
DX: Z20.828 Contact with and (suspected) exposure to other viral communicable diseases (principal)

== ENCOUNTER → 2020-11-30 | Outpatient (CLI) | payer OTHER ==
[~2020-11-30] MED LIST changes: +ISOVUE-300 61% 50ML VIAL As Ordered ONE; +PROHANCE 279.3MG/ML 5ML VIAL As Ordered ONE; -VITA-157 PO; +VITAE40CA PO
--- NOTE | 2020-11-30 09:27 | REP ---
INDICATION: PAIN IN RT HIP. COMPARISON: None. TECHNIQUE: Pre contrast 3T MRI of the right hip with post intra-articular injection of gadolinium MRI images in order to obtain an MRI arthrogram utilizing various sequences. FINDINGS: The femoral heads are spherical in shape and symmetric in appearance. The hip joint spaces are symmetric and well maintained. There is no joint effusion. No abnormal focal chondral or subchondral signal is seen in the femoral or acetabular component of either hip. There is no hip joint effusion. The sacroiliac joints are within normal limits. There is evidence of an enlarged right ovary with a 3 x 3 cm sized intra-ovarian area of T1 and T2 prolongation and an additional 1.8 cm sized area of similar signal.. The cortical and marrow signal seen throughout the examination is within normal limits. There is no abnormal signal seen in the trochanteric tendono bursal region of either hip. Dedicated small [id number] magnified images of the right hip before and after the intra-articular injection show no abnormal linear labral signal that would be consistent with a tear. The chondral surfaces are smooth. IMPRESSION: 1. There is no evidence of a labral tear or other significant right hip pathology. 2. Incompletely evaluated predominantly cystic changes in the right ovary as described above. Follow-up with pelvic ultrasound is recommended. <Electronically signed by Noel John > 11/30/20 [id number]
--- NOTE | 2020-11-30 16:25 | REP ---
INDICATION: PAIN IN RT HIP. COMPARISON: None. TECHNIQUE: The procedure was performed under the direction supervision of Dr. Mendoza. The benefits and risks including but not limited to pain, infection, bleeding and anaphylaxis were explained to the patient and informed consent was obtained. The right femoral neck was localized using fluoroscopic guidance. Skin was prepped and draped in a sterile fashion. 1% lidocaine was used as a local anesthetic. Using fluoroscopic guidance, and last image hold technology, a 22 gauge spinal needle was inserted and advanced to the femoral neck. 0.5 ml of [id number]-300 was injected to verify placement. 11 ml of a solution containing 20 ml of sterile saline and 0.15 ml of ProHance was injected into the joint. The needle was removed and the patient was taken to MRI for postprocedural imaging. The patient tolerated the procedure well and there were no immediate complications. Less than 6 seconds of fluoro time was utilized for this procedure. FINDINGS: None IMPRESSION: Fluoro guidance for right hip MRI arthrogram injection. <Electronically signed by Ottoniel Johnson > 11/30/20 [id number] <Electronically signed by Singh Mendoza > 11/30/20 0922
== END ==
LOC: M RADPRO 06:16
PROVIDERS: ATTEND Orthopaedic Surgery
DX: M25.551 Pain in right hip (principal)
CPT/HCPCS: 27093; 73723; 77002; A9576; Q9967

== ENCOUNTER 2021-01-28 13:51 | Emergency (ER) | payer OTHER ==
[~2021-01-28] VITALS: Ht 152.4 cm; Wt 46.0 kg
[~2021-01-28 13:51] MED LIST changes: -ISOVUE-300 61% 50ML VIAL As Ordered ONE; -PROHANCE 279.3MG/ML 5ML VIAL As Ordered ONE
[2021-01-28] MEDS ORDERED: NS 1,000 ML IV ONE (19:30)
[2021-01-28 20:47] LABS: BASO % 0.3 % (0.0-1.0); EOS # 0.1 10^3/uL (0.0-0.5); EOS % 0.8 % (0.0-3.0); HEMATOCRIT 39.2 % (36.0-47.0); HEMOGLOBIN 13.4 g/dl (12.0-15.5); LYMPH % 30.5 % (24.0-44.0); MEAN CORPUSCULAR HEMOGLOBIN 32.7 pg (27.0-33.0); MEAN CORPUSCULAR HGB CONC 34.2 g/dl (32.0-36.5); MEAN CORPUSCULAR VOLUME 95.6 fl (80.0-96.0); MONO # 0.5 10^3/uL (0.0-0.8); NEUTROPHILS % 61.2 % (36.0-66.0); PLATELET COUNT, AUTOMATED 188 10^3/uL (150-450); WHITE BLOOD COUNT 6.5 10^3/uL (4.0-10.0)
[2021-01-28 21:02] LABS: INR 1.06; PROTHROMBIN TIME 14.2 SECONDS (12.7-14.5)
[2021-01-28 21:03] LABS: PARTIAL THROMBOPLASTIN TIME 28.7 SECONDS (25.9-37.0)
[2021-01-28] MEDS ORDERED: ISOVUE-370 76% 100ML VIAL As Ordered ONE (21:11)
[2021-01-28 21:12] LABS: ERYTHROCYTE SEDIMENTATION RATE 6 mm/hr (0-20)
[2021-01-28 21:20] LABS: ALBUMIN 4.2 GM/DL (3.2-5.2); ALT/SGPT 22 U/L (12-78); BILIRUBIN,DIRECT 0.1 MG/DL (0.0-0.2); BILIRUBIN,TOTAL 0.5 MG/DL (0.2-1.0); CK-MB VALUE MASS 1.1 NG/ML (<3.6); CPK CREATINE PHOSPHOKINASE 93 U/L (26-192); FERRITIN 51 NG/ML (8-252); LDH LACTATE DEHYDROGENASE 171 U/L (84-246); LIPASE 61 U/L (73-393); MAGNESIUM LEVEL 2.2 MG/DL (1.8-2.4); MB/CK RELATIVE INDEX 1.18 (< OR =4); NT-PRO BNP 107 PG/ML (<125); TOTAL PROTEIN 7.5 GM/DL (6.4-8.2); TROPONIN I < 0.02 NG/ML (< 0.10)
[2021-01-28 21:27] LABS: ABG BASE EXCESS -6.6 (-2.0-2.0); ABG HCO3 17.3 MEQ/L (22.0-26.0); ABG O2 SATURATION 97.5 % (95.0-99.0); ABG PARTIAL PRESSURE CO2 29.7 mmHg (35.0-45.0); ABG PARTIAL PRESSURE O2 109.6 mmHg (75.0-100.0); ABG STANDARD HCO3 19.1 MEQ/L (22.0-26.0); ABG TOTAL CO2 18.2 MEQ/L (22.0-29.0); ABG pH (ARTERIAL) 7.383 UNITS (7.350-7.450)
--- NOTE | 2021-01-28 22:31 | REPVR ---
PROCEDURE INFORMATION: Exam: CTA Chest With Contrast Exam date and time: 01/28/2021 9:37 PM Age: 30 years old Clinical indication: Shortness of breath; Additional info: +covid worsening cp/sob x 2 weeks TECHNIQUE: Imaging protocol: Computed tomographic angiography of the chest with contrast. 3D rendering (Not supervised by radiologist): MIP and/or 3D reconstructed images were created by the technologist. Radiation optimization: All CT scans at this facility use at least one of these dose optimization techniques: automated exposure control; mA and/or kV adjustment per patient size (includes targeted exams where dose is matched to clinical indication); or iterative reconstruction. Contrast material: ISOVUE 370; Contrast volume: 75 ml; Contrast route: INTRAVENOUS (IV); COMPARISON: CR Chest, 2 view PA, Lat 04/08/2018 10:54 PM FINDINGS: Pulmonary arteries: The main pulmonary artery measures 19 mm. No pulmonary embolism is identified. Aorta: The ascending thoracic aorta measures 22 mm. Lungs: No focal infiltrates. Pleural spaces: Unremarkable. No pneumothorax. No pleural effusion. Heart: Unremarkable. No cardiomegaly. No pericardial effusion. Lymph nodes: Unremarkable. No enlarged lymph nodes. Bones/joints: Unremarkable. No acute fracture. Soft tissues: Unremarkable. IMPRESSION: Negative CTA chest. No pulmonary embolism is identified. Electronically signed by: Panchito Penn On 01/28/2021 22:30:40 PM
[2021-01-28] MEDS ORDERED: VENTAER INH (22:43)
[2021-01-28 22:54] VITALS: BP 118/74
--- NOTE | 2021-01-29 21:32 | ECGEPIP ---
[facility] - ED Test Date: 2021-01-28 Pat Name: KAMINI BARRETT Department: Room: - Gender: Female Delinquency Prevention Officer: JOSSELIN : 1990 Requested By: TAMERA KUAMR PA-C Order Number: [id number] Reading MD: Dereje Rodriguez Measurements Intervals [place] Rate: 46 P: 41 WI: 160 QRS: 60 QRSD: 80 T: 65 QT: 442 QTc: 386 Interpretive Statements Sinus bradycardia with premature atrial complexes Nonspecific T wave abnormality Similar to tracing done 11-05-15 Electronically Signed on 01-29-2021 21:32:45 EDT by Dereje Rodriguez
== END 2021-01-28 22:57 | disposition home or self-care (01) ==
LOC: M ED 13:51
DX: U07.1 COVID-19 (principal); R07.9 Chest pain, unspecified; R00.1 Bradycardia, unspecified; J45.909 Unspecified asthma, uncomplicated; F41.9 Anxiety disorder, unspecified; F32.9 Major depressive disorder, single episode, unspecified
CPT/HCPCS: 71275; 80047; 80076; 82550; 82553; 82728; 82803; 83605; 83615; 83690; 83735; 83880; 84702; 85025; 85384; 85610; 85652; 85730; 86140; 93005; 96360; 99284; Q9967

== ENCOUNTER → 2021-03-18 | Outpatient (CLI) | payer OTHER ==
[~2021-03-18] MED LIST changes: -FLUO10CA16 PO; +FLUO10CA18 PO; +ISOVUE-300 61% 50ML VIAL As Ordered ONE; +LIDOCAINE 1% MDV 20ML VIAL As Ordered ONE; +VENTAER INH; +methylPREDNISolone SUSP 40MG/ML 1ML VIAL (DEPO MEDROL) As Ordered ONE
== END ==
LOC: M RADPRO 12:48
PROVIDERS: ATTEND Physician Assistant
DX: M25.551 Pain in right hip (principal)
CPT/HCPCS: 20610; 77002; J1030; Q9967

== ENCOUNTER → 2022-01-09 | Outpatient (CLI) | payer OTHER ==
[~2022-01-09] MED LIST changes: -ISOVUE-300 61% 50ML VIAL As Ordered ONE; -LIDOCAINE 1% MDV 20ML VIAL As Ordered ONE; -methylPREDNISolone SUSP 40MG/ML 1ML VIAL (DEPO MEDROL) As Ordered ONE
[2022-01-09 11:12] LABS: C REACTIVE PROTEIN QUANTITATIV < 0.30 MG/DL (0.00-0.30); RHEUMATOID FACTOR QUANT < 10.0 IU/ML (<15.0); URIC ACID 3.6 MG/DL (2.6-6.0)
== END ==
LOC: M LAB 09:28
PROVIDERS: ATTEND Orthopaedic Surgery
DX: M17.0 Bilateral primary osteoarthritis of knee (principal)

== ENCOUNTER 2023-03-11 22:44 | Emergency (ER) | payer OTHER, SELFPAY ==
[~2023-03-11] VITALS: Ht 154.9 cm; Wt 41.8 kg
[2023-03-12] MEDS ORDERED: LIDOCAINE W/EPINEPHRINE 1% 20ML VIAL SC ONE (02:50)
[2023-03-12] MEDS ORDERED: CEPHALEXIN 500 MG CAP PO ONE (03:20)
[2023-03-12] MEDS ORDERED: CEPH500C PO (03:21)
[2023-03-12 03:42] VITALS: BP 138/81; TEMP 98; O2SAT 98
[2023-03-14] MEDS ORDERED: DOXY100C82 PO (10:36)
== END 2023-03-12 03:43 | disposition home or self-care (01) ==
LOC: M ED 22:44 → EEVIPCON 22:44 → M ED 03-12 03:43
DX: N61.1 Abscess of the breast and nipple (principal); Z79.52 Long term (current) use of systemic steroids; Z79.891 Long term (current) use of opiate analgesic; Z79.899 Other long term (current) drug therapy; Z88.5 Allergy status to narcotic agent; Z88.8 Allergy status to other drugs, medicaments and biological substances

== ENCOUNTER 2023-12-26 20:50 | Emergency (ER) | payer SELFPAY ==
[~2023-12-26] VITALS: Ht 172.7 cm; Wt 44.2 kg
[~2023-12-26 20:50] MED LIST changes: +DOXY100C82 PO; +FLUO-290 PO; +FLUO-365; -FLUO10CA18 PO; -FLUO20CA22; +GABA-1490; -GABA600T4
[2023-12-26 21:40] LABS: BASO % 0.2 % (0.0-1.0); EOS # 0.1 10^3/uL (0.0-0.5); EOS % 0.9 % (0.0-3.0); HEMATOCRIT 35.7 % (36.0-47.0); HEMOGLOBIN 12.6 g/dl (12.0-15.5); LYMPH # 1.1 10^3/uL (1.5-5.0); MEAN CORPUSCULAR HGB CONC 35.3 g/dl (32.0-36.5); MEAN CORPUSCULAR VOLUME 96.2 fl (80.0-96.0); MONO # 0.5 10^3/uL (0.0-0.8); MONO % 6.3 % (2.0-8.0); NEUTROPHILS # 6.7 10^3/uL (1.5-8.5); NEUTROPHILS % 79.4 % (36.0-66.0); PLATELET COUNT, AUTOMATED 138 10^3/uL (150-450); RED BLOOD COUNT 3.71 10^6/uL (4.00-5.40); WHITE BLOOD COUNT 8.5 10^3/uL (4.0-10.0)
[2023-12-26 21:46] LABS: ERYTHROCYTE SEDIMENTATION RATE 22 mm/hr (0-20)
[2023-12-26 21:58] LABS: BLOOD UREA NITROGEN 10 MG/DL (9-23); CALCIUM LEVEL 9.7 MG/DL (8.5-10.1); CARBON DIOXIDE LEVEL 27 MMOL/L (20-31); CHLORIDE LEVEL 109 MMOL/L (98-107); CREATININE FOR GFR 0.56 MG/DL (0.55-1.30); GLOMERULAR FILTRATION RATE > 60.0 (>60); GLUCOSE, FASTING 101 MG/DL (60-100); POTASSIUM SERUM 3.7 MMOL/L (3.5-5.1); SODIUM LEVEL 139 MMOL/L (136-145)
[2023-12-26] MEDS: LIDOCAINE 1% MDV 20ML VIAL SC ONE (22:27)
[2023-12-26] MEDS: LIDOCAINE 1% SDV 5ML VIAL DILUENT ONE (22:40)
[2023-12-26] MEDS ORDERED: DOXY100C3 PO (22:45)
[2023-12-26 22:56] VITALS: BP 100/56; TEMP 98.8; O2SAT 98
[2023-12-26] MEDS: cefTRIAXone SOD 1GM VIAL IM ONE (22:57)
== END 2023-12-26 23:05 | disposition home or self-care (01) ==
LOC: M ED 20:50
DX: L02.412 Cutaneous abscess of left axilla (principal); L03.112 Cellulitis of left axilla; J45.909 Unspecified asthma, uncomplicated; F41.9 Anxiety disorder, unspecified; F32.A Depression, unspecified; F17.200 Nicotine dependence, unspecified, uncomplicated; F12.10 Cannabis abuse, uncomplicated; F10.10 Alcohol abuse, uncomplicated; Z88.5 Allergy status to narcotic agent; Z88.8 Allergy status to other drugs, medicaments and biological substances; Z79.52 Long term (current) use of systemic steroids; Z79.2 Long term (current) use of antibiotics; Z79.899 Other long term (current) drug therapy
CPT/HCPCS: 10060; 80048; 83605; 85025; 85652; 86140; 87040; 87070; 87077; 87186; 87205; 96372; 99283; J0696

== ENCOUNTER 2024-05-13 13:37 | Emergency (ER) | payer SELFPAY ==
[~2024-05-13] VITALS: Ht 152.4 cm; Wt 44.9 kg
[~2024-05-13 13:37] MED LIST changes: +DOXY100C3 PO
[2024-05-13] MEDS ORDERED: FLON1SPR NARES (17:27)
[2024-05-13] MEDS ORDERED: CETI10CH PO (17:27)
[2024-05-13 17:30] VITALS: BP 107/56; TEMP 98.1; O2SAT 98
== END 2024-05-13 17:31 | disposition home or self-care (01) ==
LOC: M ED 13:37
DX: H65.03 Acute serous otitis media, bilateral (principal); F17.200 Nicotine dependence, unspecified, uncomplicated; Z88.5 Allergy status to narcotic agent; Z88.8 Allergy status to other drugs, medicaments and biological substances; Z79.899 Other long term (current) drug therapy; Z79.2 Long term (current) use of antibiotics